=== PATIENT | male | born 1950 | race Caucasian/White ===

== ENCOUNTER 2017-08-02 06:06 | Outpatient (CLI) | payer OTHER ==
[~2017-08-02 06:06] MED LIST: CEPHALEXIN500 MG; ENALAPRIL MALEA20 MG PO; FOLIC ACID1 MG PO; LASIX40 MG; METHOTREXATE2.5 MG PO; NAPROXEN500 MG PO; NEURONTIN600 MG PO; OXYBUTYNIN CHLOR5 MG PO; PREDNISONE10 MG PO; TERAZOSIN HCL10 MG PO; VERAPAMIL HCL240 MG PO
== END 2017-08-02 06:18 | disposition home or self-care (01) ==
LOC: LAB 06:06
DX: E55.9 Vitamin D deficiency, unspecified (principal); M06.80 Other specified rheumatoid arthritis, unspecified site

== ENCOUNTER 2017-08-02 07:14 | Outpatient (CLI) | payer OTHER | END 2017-08-02 07:27 | disposition home or self-care (01) | LOC: RAD 07:14 | DX: J84.89 Other specified interstitial pulmonary diseases (principal) ==

== ENCOUNTER 2017-10-03 08:24 | Outpatient (CLI) | payer OTHER | END 2017-10-03 17:00 | disposition home or self-care (01) | LOC: TOM 08:24 | DX: M51.9 Unspecified thoracic, thoracolumbar and lumbosacral intervertebral disc disorder (principal) ==

== ENCOUNTER → 2017-11-28 06:21 | Outpatient (CLI) | payer OTHER | END | disposition home or self-care (01) | LOC: LAB 06:21 | DX: E78.89 Other lipoprotein metabolism disorders (principal); I10 Essential (primary) hypertension; M05.79 Rheumatoid arthritis with rheumatoid factor of multiple sites without organ or systems involvement; M06.89 Other specified rheumatoid arthritis, multiple sites; Z12.11 Encounter for screening for malignant neoplasm of colon ==

== ENCOUNTER 2017-12-20 06:05 | Outpatient (CLI) | payer OTHER | END 2017-12-20 06:15 | disposition home or self-care (01) | LOC: LAB 06:05 | DX: C61 Malignant neoplasm of prostate (principal) ==

== ENCOUNTER → 2018-01-30 06:21 | Outpatient (CLI) | payer OTHER | END | disposition home or self-care (01) | LOC: LAB 06:21 | DX: M05.70 Rheumatoid arthritis with rheumatoid factor of unspecified site without organ or systems involvement (principal); M05.00 Felty's syndrome, unspecified site ==

== ENCOUNTER 2018-03-26 16:45 | Emergency (ER) | payer OTHER ==
[~2018-03-26] VITALS: Ht 162.6 cm; Wt 88.0 kg
== END 2018-03-26 22:25 | disposition home or self-care (01) ==
LOC: ER 16:45
DX: K62.5 Hemorrhage of anus and rectum (principal)

== ENCOUNTER → 2018-06-07 06:15 | Outpatient (CLI) | payer OTHER | END | disposition home or self-care (01) | LOC: LAB 06:15 | DX: D64.89 Other specified anemias (principal); M06.80 Other specified rheumatoid arthritis, unspecified site ==

== ENCOUNTER 2018-06-20 06:15 | Outpatient (CLI) | payer OTHER | END 2018-06-20 07:10 | disposition home or self-care (01) | LOC: LAB 06:15 | DX: E29.1 Testicular hypofunction (principal); C61 Malignant neoplasm of prostate ==

== ENCOUNTER 2018-06-20 10:58 | Outpatient (CLI) | payer OTHER | END 2018-06-20 11:07 | disposition home or self-care (01) | LOC: SONOGRAMA 10:58 | DX: N63.10 Unspecified lump in the right breast, unspecified quadrant (principal); Z12.31 Encounter for screening mammogram for malignant neoplasm of breast ==

== ENCOUNTER 2018-07-03 06:15 | Outpatient (CLI) | payer OTHER | END 2018-07-03 06:35 | disposition home or self-care (01) | LOC: LAB 06:15 | DX: I10 Essential (primary) hypertension (principal); M05.79 Rheumatoid arthritis with rheumatoid factor of multiple sites without organ or systems involvement; M06.9 Rheumatoid arthritis, unspecified; N41.9 Inflammatory disease of prostate, unspecified; N40.3 Nodular prostate with lower urinary tract symptoms; C61 Malignant neoplasm of prostate; M54.5 Low back pain; F33.41 Major depressive disorder, recurrent, in partial remission; K62.5 Hemorrhage of anus and rectum; E29.1 Testicular hypofunction; D35.2 Benign neoplasm of pituitary gland ==

== ENCOUNTER 2018-07-20 07:09 | Outpatient (CLI) | payer OTHER | END 2018-07-20 07:12 | disposition home or self-care (01) | LOC: SONOGRAMA 07:09 | DX: N63.10 Unspecified lump in the right breast, unspecified quadrant (principal); N63.20 Unspecified lump in the left breast, unspecified quadrant; R92.0 Mammographic microcalcification found on diagnostic imaging of breast ==

== ENCOUNTER → 2018-11-07 06:13 | Outpatient (CLI) | payer OTHER | END | disposition home or self-care (01) | LOC: LAB 06:13 | DX: M05.9 Rheumatoid arthritis with rheumatoid factor, unspecified (principal); D64.89 Other specified anemias; E55.9 Vitamin D deficiency, unspecified ==

== ENCOUNTER → 2019-01-15 06:09 | Outpatient (CLI) | payer OTHER | END | disposition home or self-care (01) | LOC: LAB 06:09 | DX: C61 Malignant neoplasm of prostate (principal); R31.29 Other microscopic hematuria ==

== ENCOUNTER 2019-02-06 06:11 | Outpatient (CLI) | payer OTHER | END 2019-02-06 07:36 | disposition home or self-care (01) | LOC: LAB 06:11 | DX: N62 Hypertrophy of breast (principal); F32.89 Other specified depressive episodes; Z12.31 Encounter for screening mammogram for malignant neoplasm of breast; M05.79 Rheumatoid arthritis with rheumatoid factor of multiple sites without organ or systems involvement; M06.89 Other specified rheumatoid arthritis, multiple sites; C61 Malignant neoplasm of prostate; N40.3 Nodular prostate with lower urinary tract symptoms; N41.8 Other inflammatory diseases of prostate; E66.8 Other obesity; M54.5 Low back pain; I11.9 Hypertensive heart disease without heart failure; Z68.30 Body mass index [BMI] 30.0-30.9, adult; M15.8 Other polyosteoarthritis ==

== ENCOUNTER 2019-02-15 09:50 | Outpatient (CLI) | payer OTHER | END 2019-02-15 09:56 | disposition home or self-care (01) | LOC: LAB 09:50 | DX: F32.89 Other specified depressive episodes (principal) ==

== ENCOUNTER 2019-02-28 07:31 | Outpatient (CLI) | payer OTHER | END 2019-02-28 07:43 | disposition home or self-care (01) | LOC: MRI 07:31 | DX: F32.89 Other specified depressive episodes (principal); N63.10 Unspecified lump in the right breast, unspecified quadrant; Z12.31 Encounter for screening mammogram for malignant neoplasm of breast; M05.79 Rheumatoid arthritis with rheumatoid factor of multiple sites without organ or systems involvement; M06.89 Other specified rheumatoid arthritis, multiple sites; C61 Malignant neoplasm of prostate; N40.3 Nodular prostate with lower urinary tract symptoms; N41.8 Other inflammatory diseases of prostate; E66.8 Other obesity; M15.8 Other polyosteoarthritis; M54.5 Low back pain; I11.9 Hypertensive heart disease without heart failure | CPT/HCPCS: 70553; A9575 ==

== ENCOUNTER 2019-04-16 06:11 | Outpatient (CLI) | payer OTHER | END 2019-04-16 07:32 | disposition home or self-care (01) | LOC: LAB 06:11 | DX: F32.89 Other specified depressive episodes (principal); N63.10 Unspecified lump in the right breast, unspecified quadrant; Z12.31 Encounter for screening mammogram for malignant neoplasm of breast; M05.79 Rheumatoid arthritis with rheumatoid factor of multiple sites without organ or systems involvement; M06.89 Other specified rheumatoid arthritis, multiple sites; C61 Malignant neoplasm of prostate; N40.3 Nodular prostate with lower urinary tract symptoms; N41.8 Other inflammatory diseases of prostate; E66.8 Other obesity; M15.8 Other polyosteoarthritis; M54.5 Low back pain; E11.9 Type 2 diabetes mellitus without complications; Z68.30 Body mass index [BMI] 30.0-30.9, adult ==

== ENCOUNTER 2019-04-30 06:17 | Outpatient (CLI) | payer OTHER | END 2019-04-30 06:31 | disposition home or self-care (01) | LOC: LAB 06:17 | DX: M05.70 Rheumatoid arthritis with rheumatoid factor of unspecified site without organ or systems involvement (principal); M06.4 Inflammatory polyarthropathy ==

== ENCOUNTER 2019-08-03 06:18 | Outpatient (CLI) | payer OTHER | END 2019-08-03 07:10 | disposition home or self-care (01) | LOC: LAB 06:18 | DX: E66.8 Other obesity (principal) ==

== ENCOUNTER 2019-08-08 06:14 | Outpatient (CLI) | payer OTHER | END 2019-08-08 06:17 | disposition home or self-care (01) | LOC: LAB 06:14 | DX: F32.89 Other specified depressive episodes (principal); N63.10 Unspecified lump in the right breast, unspecified quadrant; M05.79 Rheumatoid arthritis with rheumatoid factor of multiple sites without organ or systems involvement; M06.89 Other specified rheumatoid arthritis, multiple sites ==

== ENCOUNTER → 2019-08-10 | Outpatient (CLI) | payer OTHER | END | disposition home or self-care (01) | LOC: MRI 08-07 07:15 | DX: F32.89 Other specified depressive episodes (principal); N63.10 Unspecified lump in the right breast, unspecified quadrant; M05.79 Rheumatoid arthritis with rheumatoid factor of multiple sites without organ or systems involvement; M06.9 Rheumatoid arthritis, unspecified; C61 Malignant neoplasm of prostate; N40.3 Nodular prostate with lower urinary tract symptoms; N41.8 Other inflammatory diseases of prostate; E66.8 Other obesity; M15.8 Other polyosteoarthritis; M54.5 Low back pain; I11.9 Hypertensive heart disease without heart failure; Z68.30 Body mass index [BMI] 30.0-30.9, adult | CPT/HCPCS: 70553; A9575; 70552 ==

== ENCOUNTER 2019-08-13 06:17 | Outpatient (CLI) | payer OTHER | END 2019-08-13 06:27 | disposition home or self-care (01) | LOC: LAB 06:17 | DX: C61 Malignant neoplasm of prostate (principal); N31.0 Uninhibited neuropathic bladder, not elsewhere classified ==

== ENCOUNTER 2019-10-24 09:34 | Outpatient (CLI) | payer OTHER | END 2019-10-24 09:41 | disposition home or self-care (01) | LOC: LAB 09:34 | DX: R31.1 Benign essential microscopic hematuria (principal); N30.00 Acute cystitis without hematuria ==

== ENCOUNTER 2019-10-29 08:49 | Outpatient (CLI) | payer OTHER | END 2019-10-29 09:00 | disposition home or self-care (01) | LOC: RAD 08:49 → TOM 08:49 → RAD 09:00 → TOM 09:00 | DX: N30.00 Acute cystitis without hematuria (principal); C61 Malignant neoplasm of prostate; R31.0 Gross hematuria | CPT/HCPCS: 74178; Q9965 ==

== ENCOUNTER 2019-11-26 06:18 | Outpatient (CLI) | payer OTHER | END 2019-11-26 07:23 | disposition home or self-care (01) | LOC: LAB 06:18 | DX: M05.70 Rheumatoid arthritis with rheumatoid factor of unspecified site without organ or systems involvement (principal) ==

== ENCOUNTER 2019-12-12 06:07 | Outpatient (CLI) | payer OTHER | END 2019-12-12 06:13 | disposition home or self-care (01) | LOC: LAB 06:07 | DX: F32.89 Other specified depressive episodes (principal); N63.10 Unspecified lump in the right breast, unspecified quadrant; M05.79 Rheumatoid arthritis with rheumatoid factor of multiple sites without organ or systems involvement; M06.9 Rheumatoid arthritis, unspecified; C61 Malignant neoplasm of prostate; N40.3 Nodular prostate with lower urinary tract symptoms; N41.8 Other inflammatory diseases of prostate; E66.8 Other obesity; M15.8 Other polyosteoarthritis; M54.5 Low back pain; I11.9 Hypertensive heart disease without heart failure; Z68.30 Body mass index [BMI] 30.0-30.9, adult; Z12.11 Encounter for screening for malignant neoplasm of colon ==

== ENCOUNTER → 2020-03-11 06:09 | Outpatient (CLI) | payer OTHER | END | disposition home or self-care (01) | LOC: LAB 06:09 | PROVIDERS: ATTEND Internal Medicine | DX: N40.3 Nodular prostate with lower urinary tract symptoms (principal); F32.89 Other specified depressive episodes; N63.10 Unspecified lump in the right breast, unspecified quadrant; M05.79 Rheumatoid arthritis with rheumatoid factor of multiple sites without organ or systems involvement; M06.89 Other specified rheumatoid arthritis, multiple sites; C61 Malignant neoplasm of prostate; N41.8 Other inflammatory diseases of prostate; E66.8 Other obesity; M15.8 Other polyosteoarthritis; I11.9 Hypertensive heart disease without heart failure; Z68.30 Body mass index [BMI] 30.0-30.9, adult; Z12.11 Encounter for screening for malignant neoplasm of colon; M54.5 Low back pain ==

== ENCOUNTER → 2020-05-26 06:14 | Outpatient (CLI) | payer OTHER | END | disposition home or self-care (01) | LOC: LAB 06:14 | PROVIDERS: ATTEND Internal Medicine Rheumatology | DX: M05.70 Rheumatoid arthritis with rheumatoid factor of unspecified site without organ or systems involvement (principal); E55.9 Vitamin D deficiency, unspecified; M81.0 Age-related osteoporosis without current pathological fracture ==

== ENCOUNTER 2020-07-07 06:24 | Outpatient (CLI) | payer OTHER | END 2020-07-07 06:29 | disposition home or self-care (01) | LOC: LAB 06:24 | PROVIDERS: ATTEND Internal Medicine | DX: C61 Malignant neoplasm of prostate (principal); F32.89 Other specified depressive episodes; N63.10 Unspecified lump in the right breast, unspecified quadrant; M05.79 Rheumatoid arthritis with rheumatoid factor of multiple sites without organ or systems involvement; M06.9 Rheumatoid arthritis, unspecified; N40.3 Nodular prostate with lower urinary tract symptoms; N41.9 Inflammatory disease of prostate, unspecified; E66.8 Other obesity; M15.9 Polyosteoarthritis, unspecified; M54.5 Low back pain; I11.9 Hypertensive heart disease without heart failure; Z68.30 Body mass index [BMI] 30.0-30.9, adult; Z12.11 Encounter for screening for malignant neoplasm of colon ==

== ENCOUNTER 2020-07-21 06:20 | Outpatient (CLI) | payer OTHER | END 2020-07-21 06:26 | disposition home or self-care (01) | LOC: LAB 06:20 | PROVIDERS: ATTEND Urology | DX: C61 Malignant neoplasm of prostate (principal); N30.00 Acute cystitis without hematuria ==

== ENCOUNTER 2020-08-11 06:08 | Outpatient (CLI) | payer OTHER | END 2020-08-11 06:15 | disposition home or self-care (01) | LOC: LAB 06:08 | PROVIDERS: ATTEND Urology | DX: C61 Malignant neoplasm of prostate (principal); R31.1 Benign essential microscopic hematuria ==

== ENCOUNTER 2020-10-06 06:12 | Outpatient (CLI) | payer OTHER | END 2020-10-06 06:17 | disposition home or self-care (01) | LOC: LAB 06:12 | PROVIDERS: ATTEND Internal Medicine | DX: N41.8 Other inflammatory diseases of prostate (principal); F32.89 Other specified depressive episodes; Z12.11 Encounter for screening for malignant neoplasm of colon; N63.10 Unspecified lump in the right breast, unspecified quadrant; M05.79 Rheumatoid arthritis with rheumatoid factor of multiple sites without organ or systems involvement; M06.8A Other specified rheumatoid arthritis, other specified site; C61 Malignant neoplasm of prostate; N40.3 Nodular prostate with lower urinary tract symptoms; E66.8 Other obesity; M15.8 Other polyosteoarthritis; M54.5 Low back pain; I11.9 Hypertensive heart disease without heart failure; Z20.828 Contact with and (suspected) exposure to other viral communicable diseases; Z03.818 Encounter for observation for suspected exposure to other biological agents ruled out; M06.4 Inflammatory polyarthropathy; Z68.30 Body mass index [BMI] 30.0-30.9, adult ==

== ENCOUNTER 2020-11-23 08:18 | Emergency (ER) | payer OTHER ==
[~2020-11-23] VITALS: Ht 162.6 cm; Wt 80.7 kg
== END 2020-11-23 10:09 | disposition home or self-care (01) ==
LOC: ER 08:18
DX: M62.830 Muscle spasm of back (principal); M54.6 Pain in thoracic spine

== ENCOUNTER → 2021-01-05 06:14 | Outpatient (CLI) | payer OTHER | END | disposition home or self-care (01) | LOC: LAB 06:14 | PROVIDERS: ATTEND Internal Medicine Rheumatology | DX: M05.70 Rheumatoid arthritis with rheumatoid factor of unspecified site without organ or systems involvement (principal); M19.90 Unspecified osteoarthritis, unspecified site; D64.9 Anemia, unspecified ==

== ENCOUNTER 2021-01-13 06:09 | Outpatient (CLI) | payer OTHER | END 2021-01-13 06:10 | disposition home or self-care (01) | LOC: LAB 06:09 | PROVIDERS: ATTEND Internal Medicine | DX: N63.10 Unspecified lump in the right breast, unspecified quadrant (principal); F32.9 Major depressive disorder, single episode, unspecified; M05.79 Rheumatoid arthritis with rheumatoid factor of multiple sites without organ or systems involvement; C61 Malignant neoplasm of prostate; N40.3 Nodular prostate with lower urinary tract symptoms; N41.9 Inflammatory disease of prostate, unspecified; E66.8 Other obesity; M15.9 Polyosteoarthritis, unspecified; M54.5 Low back pain; I11.9 Hypertensive heart disease without heart failure; Z20.828 Contact with and (suspected) exposure to other viral communicable diseases; Z03.818 Encounter for observation for suspected exposure to other biological agents ruled out; M06.4 Inflammatory polyarthropathy; Z68.30 Body mass index [BMI] 30.0-30.9, adult; Z12.11 Encounter for screening for malignant neoplasm of colon ==

== ENCOUNTER 2021-04-13 06:11 | Outpatient (CLI) | payer OTHER | END 2021-04-13 06:13 | disposition home or self-care (01) | LOC: LAB 06:11 | PROVIDERS: ATTEND Internal Medicine | DX: F32.89 Other specified depressive episodes (principal); N63.10 Unspecified lump in the right breast, unspecified quadrant; M05.79 Rheumatoid arthritis with rheumatoid factor of multiple sites without organ or systems involvement; M06.8A Other specified rheumatoid arthritis, other specified site; C61 Malignant neoplasm of prostate; N40.3 Nodular prostate with lower urinary tract symptoms; N41.8 Other inflammatory diseases of prostate; E66.8 Other obesity; M15.8 Other polyosteoarthritis; M54.5 Low back pain; M06.4 Inflammatory polyarthropathy; I10 Essential (primary) hypertension; Z68.30 Body mass index [BMI] 30.0-30.9, adult; Z12.11 Encounter for screening for malignant neoplasm of colon ==

== ENCOUNTER 2021-06-11 05:00 | Emergency (ER) | payer OTHER ==
[~2021-06-11] VITALS: Ht 162.6 cm; Wt 81.6 kg
[2021-06-11] MEDS ORDERED: NOXIFOL-D32500 UNIT PO (05:17)
[2021-06-11] MEDS ORDERED: BUSPIRONE HCL7.5 MG (05:18)
[2021-06-11] MEDS ORDERED: FOLIC ACID1 MG PO (05:18)
[2021-06-11] MEDS ORDERED: ZANAFLEX4 M1 PO (05:19)
[2021-06-11] MEDS ORDERED: METHOTREXATE2.5 MG PO (05:19)
== END 2021-06-11 09:59 | disposition home or self-care (01) ==
LOC: ER 05:00 → CPU-OBS 05:07 → ER 09:59
DX: R07.89 Other chest pain (principal)

== ENCOUNTER → 2021-07-06 06:14 | Outpatient (CLI) | payer OTHER ==
[~2021-07-06 06:14] MED LIST changes: +BUSPIRONE HCL7.5 MG; +NOXIFOL-D32500 UNIT PO; +ZANAFLEX4 M1 PO
== END | disposition home or self-care (01) ==
LOC: LAB 06:14
PROVIDERS: ATTEND Internal Medicine Rheumatology
DX: I10 Essential (primary) hypertension (principal); R05.8 Other specified cough; M81.0 Age-related osteoporosis without current pathological fracture; M05.70 Rheumatoid arthritis with rheumatoid factor of unspecified site without organ or systems involvement; E55.9 Vitamin D deficiency, unspecified

== ENCOUNTER 2021-07-14 06:31 | Outpatient (CLI) | payer OTHER | END 2021-07-14 06:33 | disposition home or self-care (01) | LOC: LAB 06:31 | PROVIDERS: ATTEND Internal Medicine | DX: F32.89 Other specified depressive episodes (principal); N63.10 Unspecified lump in the right breast, unspecified quadrant; M05.79 Rheumatoid arthritis with rheumatoid factor of multiple sites without organ or systems involvement; C61 Malignant neoplasm of prostate; N40.3 Nodular prostate with lower urinary tract symptoms; N41.8 Other inflammatory diseases of prostate; E66.8 Other obesity; M15.8 Other polyosteoarthritis; M54.59 Other low back pain; M06.4 Inflammatory polyarthropathy; I10 Essential (primary) hypertension; Z68.30 Body mass index [BMI] 30.0-30.9, adult; Z12.11 Encounter for screening for malignant neoplasm of colon ==

== ENCOUNTER 2021-08-04 07:11 | Outpatient (CLI) | payer OTHER | END 2021-08-04 07:16 | disposition home or self-care (01) | LOC: SONOGRAMA 07:11 | PROVIDERS: ATTEND Urology | DX: N30.00 Acute cystitis without hematuria (principal); C61 Malignant neoplasm of prostate ==

== ENCOUNTER → 2021-08-19 06:18 | Outpatient (CLI) | payer OTHER | END | disposition home or self-care (01) | LOC: LAB 06:18 | PROVIDERS: ATTEND Urology | DX: C61 Malignant neoplasm of prostate (principal); N30.00 Acute cystitis without hematuria ==

== ENCOUNTER 2021-10-19 06:10 | Outpatient (CLI) | payer OTHER | END 2021-10-19 06:11 | disposition home or self-care (01) | LOC: LAB 06:10 | PROVIDERS: ATTEND Internal Medicine | DX: F32.9 Major depressive disorder, single episode, unspecified (principal); N63.10 Unspecified lump in the right breast, unspecified quadrant; M05.79 Rheumatoid arthritis with rheumatoid factor of multiple sites without organ or systems involvement; M06.9 Rheumatoid arthritis, unspecified; C61 Malignant neoplasm of prostate; N40.3 Nodular prostate with lower urinary tract symptoms; N41.9 Inflammatory disease of prostate, unspecified; E66.8 Other obesity; M15.9 Polyosteoarthritis, unspecified; M54.50 Low back pain, unspecified; M06.4 Inflammatory polyarthropathy; I10 Essential (primary) hypertension; M62.838 Other muscle spasm; M62.830 Muscle spasm of back; G24.3 Spasmodic torticollis; Z68.30 Body mass index [BMI] 30.0-30.9, adult; Z12.11 Encounter for screening for malignant neoplasm of colon ==

== ENCOUNTER 2022-01-04 06:18 | Outpatient (CLI) | payer OTHER | END 2022-01-04 06:21 | disposition home or self-care (01) | LOC: LAB 06:18 | PROVIDERS: ATTEND Internal Medicine Rheumatology | DX: D64.9 Anemia, unspecified (principal); R10.9 Unspecified abdominal pain; M05.70 Rheumatoid arthritis with rheumatoid factor of unspecified site without organ or systems involvement; M06.4 Inflammatory polyarthropathy ==

== ENCOUNTER 2022-01-26 06:08 | Outpatient (CLI) | payer OTHER | END 2022-01-26 06:09 | disposition home or self-care (01) | LOC: LAB 06:08 | PROVIDERS: ATTEND Internal Medicine | DX: F32.9 Major depressive disorder, single episode, unspecified (principal); N63.10 Unspecified lump in the right breast, unspecified quadrant; M05.79 Rheumatoid arthritis with rheumatoid factor of multiple sites without organ or systems involvement; M06.9 Rheumatoid arthritis, unspecified; C61 Malignant neoplasm of prostate; N40.3 Nodular prostate with lower urinary tract symptoms; N41.9 Inflammatory disease of prostate, unspecified; E66.8 Other obesity; M15.9 Polyosteoarthritis, unspecified; M54.50 Low back pain, unspecified; M06.4 Inflammatory polyarthropathy; I10 Essential (primary) hypertension; M62.838 Other muscle spasm; M62.830 Muscle spasm of back; G24.3 Spasmodic torticollis; E78.9 Disorder of lipoprotein metabolism, unspecified; Z68.30 Body mass index [BMI] 30.0-30.9, adult; Z12.11 Encounter for screening for malignant neoplasm of colon; N41.0 Acute prostatitis ==

== ENCOUNTER 2022-05-04 06:23 | Outpatient (CLI) | payer OTHER | END 2022-05-04 06:24 | disposition home or self-care (01) | LOC: LAB 06:23 | PROVIDERS: ATTEND Internal Medicine | DX: F32.9 Major depressive disorder, single episode, unspecified (principal); N63.10 Unspecified lump in the right breast, unspecified quadrant; M05.79 Rheumatoid arthritis with rheumatoid factor of multiple sites without organ or systems involvement; C61 Malignant neoplasm of prostate; N40.3 Nodular prostate with lower urinary tract symptoms; N41.9 Inflammatory disease of prostate, unspecified; E66.8 Other obesity; M15.9 Polyosteoarthritis, unspecified; M54.50 Low back pain, unspecified; M06.4 Inflammatory polyarthropathy; I10 Essential (primary) hypertension; M62.838 Other muscle spasm; G24.3 Spasmodic torticollis; E78.9 Disorder of lipoprotein metabolism, unspecified; Z12.11 Encounter for screening for malignant neoplasm of colon ==

== ENCOUNTER 2022-06-28 06:09 | Outpatient (CLI) | payer OTHER | END 2022-06-28 06:10 | disposition home or self-care (01) | LOC: LAB 06:09 | PROVIDERS: ATTEND Internal Medicine Rheumatology | DX: M05.70 Rheumatoid arthritis with rheumatoid factor of unspecified site without organ or systems involvement (principal); E55.9 Vitamin D deficiency, unspecified; M81.0 Age-related osteoporosis without current pathological fracture ==

== ENCOUNTER 2022-08-04 06:13 | Outpatient (CLI) | payer OTHER | END 2022-08-04 06:14 | disposition home or self-care (01) | LOC: LAB 06:13 | PROVIDERS: ATTEND Internal Medicine | DX: F32.9 Major depressive disorder, single episode, unspecified (principal); N63.10 Unspecified lump in the right breast, unspecified quadrant; M05.79 Rheumatoid arthritis with rheumatoid factor of multiple sites without organ or systems involvement; M06.9 Rheumatoid arthritis, unspecified; C61 Malignant neoplasm of prostate; N40.3 Nodular prostate with lower urinary tract symptoms; N41.9 Inflammatory disease of prostate, unspecified; E66.8 Other obesity; M15.9 Polyosteoarthritis, unspecified; M54.50 Low back pain, unspecified; I10 Essential (primary) hypertension ==

== ENCOUNTER 2022-08-17 06:12 | Outpatient (CLI) | payer OTHER | END 2022-08-17 06:13 | disposition home or self-care (01) | LOC: LAB 06:12 | PROVIDERS: ATTEND Urology | DX: N30.00 Acute cystitis without hematuria (principal); C61 Malignant neoplasm of prostate; D35.2 Benign neoplasm of pituitary gland ==

== ENCOUNTER → 2022-11-15 06:23 | Outpatient (CLI) | payer OTHER | END | disposition home or self-care (01) | LOC: LAB 06:23 | PROVIDERS: ATTEND Internal Medicine | DX: M06.4 Inflammatory polyarthropathy (principal); I11.9 Hypertensive heart disease without heart failure; F33.41 Major depressive disorder, recurrent, in partial remission; M06.9 Rheumatoid arthritis, unspecified; M54.59 Other low back pain; F41.9 Anxiety disorder, unspecified; N41.0 Acute prostatitis; Z12.11 Encounter for screening for malignant neoplasm of colon ==

== ENCOUNTER 2022-11-20 15:29 | Emergency (ER) | payer OTHER ==
[~2022-11-20] VITALS: Ht 162.6 cm; Wt 85.3 kg
[2022-11-20] MEDS ORDERED: CRESTOR5 MG PO (16:26)
[2022-11-20] MEDS ORDERED: LASIX20 MG PO (16:26)
[2022-11-20] MEDS ORDERED: ARTHRITIS PAIN650 MG PO (16:26)
[2022-11-20] MEDS ORDERED: VITAMIN D3100 GM MC (16:26)
[2022-11-20] MEDS ORDERED: ZESTRIL40 M1 PO (16:26)
[2022-11-20] MEDS ORDERED: VERAPAMIL ER240 MG PO (16:27)
== END 2022-11-20 20:51 | disposition home or self-care (01) ==
LOC: ER 15:29
DX: N30.81 Other cystitis with hematuria (principal)

== ENCOUNTER 2023-01-15 03:14 | Emergency (ER) | payer OTHER ==
[~2023-01-15] VITALS: Ht 162.6 cm; Wt 83.5 kg
[~2023-01-15 03:14] MED LIST changes: +ARTHRITIS PAIN650 MG PO; +CRESTOR5 MG PO; +LASIX20 MG PO; +VERAPAMIL ER240 MG PO; +VITAMIN D3100 GM MC; +ZESTRIL40 M1 PO
[2023-01-15] MEDS ORDERED: VITAMIN B-1100 M1 (03:27)
== END 2023-01-15 06:14 | disposition home or self-care (01) ==
LOC: ER 03:14
DX: R30.0 Dysuria (principal)

== ENCOUNTER 2023-02-07 06:03 | Outpatient (CLI) | payer OTHER ==
[~2023-02-07 06:03] MED LIST changes: +VITAMIN B-1100 M1
== END 2023-02-07 06:04 | disposition home or self-care (01) ==
LOC: LAB 06:03
PROVIDERS: ATTEND Internal Medicine
DX: M06.4 Inflammatory polyarthropathy (principal); I11.9 Hypertensive heart disease without heart failure; F33.41 Major depressive disorder, recurrent, in partial remission; M06.9 Rheumatoid arthritis, unspecified; M54.59 Other low back pain; F41.9 Anxiety disorder, unspecified; Z12.11 Encounter for screening for malignant neoplasm of colon; N41.0 Acute prostatitis

== ENCOUNTER → 2023-04-05 06:07 | Outpatient (CLI) | payer OTHER | END | disposition home or self-care (01) | LOC: LAB 06:07 | PROVIDERS: ATTEND Internal Medicine Rheumatology | DX: M19.90 Unspecified osteoarthritis, unspecified site (principal); M05.70 Rheumatoid arthritis with rheumatoid factor of unspecified site without organ or systems involvement; M06.4 Inflammatory polyarthropathy ==

== ENCOUNTER → 2023-05-17 06:07 | Outpatient (CLI) | payer OTHER ==
[2023-05-17 07:27] LABS: HEMATOCRIT 45.1 % (39.0-48.0); HEMOGLOBIN 15.1 g/dL (13-16.00); MEAN CELL VOLUME 90.2 fL (80.0-100.00); MEAN CORPUSCULAR HEMOGLOBIN 30.2 pg (27.00-32.0); MEAN CORPUSCULAR HGB CONC 33.5 g/dl (32.0-36.0); PLATELET COUNT 145 K/uL (150-450); RED CELL DISTRIBUTION WIDTH 14.8 % (11.5-14.5)
[2023-05-17 07:37] LABS: PH,URINE 5.5 (5.0-8.0); URINE APPEARANCE Clear; URINE BILIRRUBIN Negative (NEGATIVE); URINE BLOOD Negative; URINE COLOR Dark Yellow; URINE GLUCOSE Negative (NEGATIVE); URINE LEUKOCYTE Negative; URINE NITRATE Negative; URINE PROTEIN 30 (NEGATIVE)
[2023-05-17 07:43] LABS: URINE BACTERIA 7.5 uL (0.0-1933); URINE EPITHELIAL CELLS 6.7 uL (0.0-38.8); URINE RBC 2.8 uL (0.0-20.8); URINE WBC 3.2 uL (0.0-23.2)
[2023-05-17 07:52] LABS: ALBUMIN 3.7 gm/dL (3.4-5.0); BILIRUBIN TOTAL 0.57 mg/dL (0.3-1.2); CALCIUM 9.4 mg/dL (8.5-10.1); CREATININE SERUM 1.13 mg/dL (0.70-1.30); GFR 63.61; GLOBULINA 3.9 G/DL (2.4-3.5); POTASSIUM 4.17 mEq/L (3.5-5.1); TOTAL PROTEIN 7.6 gm/dL (6.4-8.2)
== END | disposition home or self-care (01) ==
LOC: LAB 06:07
PROVIDERS: ATTEND Internal Medicine
DX: M06.4 Inflammatory polyarthropathy (principal); I11.9 Hypertensive heart disease without heart failure; F33.41 Major depressive disorder, recurrent, in partial remission; M06.9 Rheumatoid arthritis, unspecified; F41.9 Anxiety disorder, unspecified; Z12.11 Encounter for screening for malignant neoplasm of colon; N41.0 Acute prostatitis; M54.50 Low back pain, unspecified

== ENCOUNTER → 2023-05-23 06:07 | Outpatient (CLI) | payer OTHER ==
[2023-05-23 08:39] LABS: URINE PROT QUANT 24HR 6.1 MG/DL
[2023-05-23 08:40] LABS: URINE PROT QUANT 24 HR 103.7 MG/24HR (42-225)
== END | disposition home or self-care (01) ==
LOC: LAB 06:07
PROVIDERS: ATTEND Internal Medicine
DX: F33.41 Major depressive disorder, recurrent, in partial remission (principal); M06.9 Rheumatoid arthritis, unspecified; I10 Essential (primary) hypertension; F41.9 Anxiety disorder, unspecified; Z12.11 Encounter for screening for malignant neoplasm of colon; N41.0 Acute prostatitis; M54.50 Low back pain, unspecified; M06.4 Inflammatory polyarthropathy

== ENCOUNTER → 2023-08-16 06:09 | Outpatient (CLI) | payer OTHER ==
[2023-08-16 07:23] LABS: URINE APPEARANCE Clear; URINE BILIRRUBIN Moderate (NEGATIVE); URINE BLOOD Negative; URINE COLOR Dark Yellow; URINE GLUCOSE Negative (NEGATIVE); URINE LEUKOCYTE Negative; URINE NITRATE Negative
[2023-08-16 07:24] LABS: URINE BACTERIA 26.4 uL (0.0-1933); URINE EPITHELIAL CELLS 12.8 uL (0.0-38.8); URINE RBC 2.1 uL (0.0-20.8); URINE WBC 7.1 uL (0.0-23.2)
[2023-08-16 07:25] LABS: URINE PROTEIN 100 (NEGATIVE)
== END | disposition home or self-care (01) ==
LOC: LAB 06:09
PROVIDERS: ATTEND Urology
DX: R31.0 Gross hematuria (principal); E22.8 Other hyperfunction of pituitary gland

== ENCOUNTER 2023-08-17 07:00 | Outpatient (CLI) | payer OTHER | END 2023-08-17 07:06 | disposition home or self-care (01) | LOC: SONOGRAMA 07:00 | PROVIDERS: ATTEND Urology | DX: R31.0 Gross hematuria (principal); E22.8 Other hyperfunction of pituitary gland ==

== ENCOUNTER 2023-09-06 06:12 | Outpatient (CLI) | payer OTHER ==
[2023-09-06 07:17] LABS: HEMATOCRIT 45.1 % (39.0-48.0); HEMOGLOBIN 15.4 g/dL (13-16.00); MEAN CELL VOLUME 88.2 fL (80.0-100.00); MEAN CORPUSCULAR HEMOGLOBIN 30.2 pg (27.00-32.0); MEAN CORPUSCULAR HGB CONC 34.2 g/dl (32.0-36.0); PLATELET COUNT 152 K/uL (150-450); RED BLOOD COUNT 5.12 M/uL (4.00-6.00); RED CELL DISTRIBUTION WIDTH 13.7 % (11.5-14.5)
[2023-09-06 07:20] LABS: URINE APPEARANCE Clear; URINE BILIRRUBIN Negative (NEGATIVE); URINE BLOOD Negative; URINE COLOR Yellow; URINE GLUCOSE Negative (NEGATIVE); URINE LEUKOCYTE Negative; URINE NITRATE Negative; URINE PROTEIN 30 (NEGATIVE); URINE UROBILINOGEN 0.2 E.U./dl
[2023-09-06 07:21] LABS: URINE WBC 2.1 uL (0.0-23.2)
[2023-09-06 07:32] LABS: URINE EPITHELIAL CELLS 0.9 uL (0.0-38.8); URINE RBC 0.1 uL (0.0-20.8)
[2023-09-06 07:40] LABS: BILIRUBIN TOTAL 0.58 mg/dL (0.3-1.2); CALCIUM 9.8 mg/dL (8.5-10.1); CHOL HDL RATIO 2.1 (0-5.0); CREATININE SERUM 1.16 mg/dL (0.70-1.30); GFR 61.71; GLOBULINA 4.1 G/DL (2.4-3.5); POTASSIUM 4.72 mEq/L (3.5-5.1); TOTAL PROTEIN 8.1 gm/dL (6.4-8.2)
[2023-09-06 12:37] LABS: ob NEGATIVE (NEGATIVE)
== END 2023-09-06 06:13 | disposition home or self-care (01) ==
LOC: LAB 06:12
PROVIDERS: ATTEND Internal Medicine
DX: I11.9 Hypertensive heart disease without heart failure (principal); K62.5 Hemorrhage of anus and rectum; M15.9 Polyosteoarthritis, unspecified; M54.50 Low back pain, unspecified; I10 Essential (primary) hypertension

== ENCOUNTER 2024-03-26 06:02 | Outpatient (CLI) | payer OTHER ==
[2024-03-26 07:32] LABS: HEMATOCRIT 44.7 % (39.0-48.0); HEMOGLOBIN 15.2 g/dL (13-16.00); MEAN CELL VOLUME 87.5 fL (80.0-100.00); MEAN CORPUSCULAR HEMOGLOBIN 29.7 pg (27.00-32.0); MEAN CORPUSCULAR HGB CONC 33.9 g/dl (32.0-36.0); PLATELET COUNT 174 K/uL (150-450); RED BLOOD COUNT 5.11 M/uL (4.00-6.00)
[2024-03-26 07:53] LABS: URINE APPEARANCE Clear; URINE BILIRRUBIN Negative (NEGATIVE); URINE BLOOD Negative; URINE COLOR Dark Yellow; URINE GLUCOSE Negative (NEGATIVE); URINE KETONE 15 (NEGATIVE); URINE LEUKOCYTE Negative; URINE NITRATE Negative
[2024-03-26 07:57] LABS: URINE BACTERIA 15.1 uL (0.0-1933); URINE EPITHELIAL CELLS 7.4 uL (0.0-38.8); URINE WBC 3.5 uL (0.0-23.2)
[2024-03-26 08:04] LABS: URINE CAST 0.45 uL (0.0-1.40); URINE PROTEIN 100 (NEGATIVE); URINE RBC 0.9 uL (0.0-20.8)
[2024-03-26 08:18] LABS: ALBUMIN 3.9 gm/dL (3.4-5.0); BILIRUBIN TOTAL 0.59 mg/dL (0.3-1.2); CALCIUM 9.8 mg/dL (8.5-10.1); CHOL HDL RATIO 1.8 (0-5.0); CREATININE SERUM 0.98 mg/dL (0.70-1.30); GFR 74.97; GLOBULINA 4.1 G/DL (2.4-3.5); POTASSIUM 4.29 mEq/L (3.5-5.1)
== END 2024-03-26 06:03 | disposition home or self-care (01) ==
LOC: LAB 06:02
PROVIDERS: ATTEND Internal Medicine
DX: I11.9 Hypertensive heart disease without heart failure (principal); K62.5 Hemorrhage of anus and rectum; M15.9 Polyosteoarthritis, unspecified; I10 Essential (primary) hypertension

== ENCOUNTER 2024-04-16 06:07 | Outpatient (CLI) | payer OTHER ==
[2024-04-16 07:26] LABS: HEMATOCRIT 45.1 % (39.0-48.0); HEMOGLOBIN 15.1 g/dL (13-16.00); MEAN CELL VOLUME 88.8 fL (80.0-100.00); MEAN CORPUSCULAR HEMOGLOBIN 29.7 pg (27.00-32.0); MEAN CORPUSCULAR HGB CONC 33.5 g/dl (32.0-36.0); PLATELET COUNT 145 K/uL (150-450); RED BLOOD COUNT 5.08 M/uL (4.00-6.00); RED CELL DISTRIBUTION WIDTH 14.3 % (11.5-14.5)
[2024-04-16 07:34] LABS: ERYTHROCYTE SEDIMENTATION RATE 16 mm/hr
[2024-04-16 08:08] LABS: ALBUMIN 3.8 gm/dL (3.4-5.0); BILIRUBIN TOTAL 0.7 mg/dL (0.3-1.2); CALCIUM 9.5 mg/dL (8.5-10.1); CREATININE SERUM 1.05 mg/dL (0.70-1.30); GFR 69.23; POTASSIUM 4.72 mEq/L (3.5-5.1); TOTAL PROTEIN 7.8 gm/dL (6.4-8.2)
[2024-04-16 08:10] LABS: C-REACTIVE PROTEIN 0.35 MG/DL (0.00-0.29)
== END 2024-04-16 06:08 | disposition home or self-care (01) ==
LOC: LAB 06:07
PROVIDERS: ATTEND Internal Medicine Rheumatology
DX: M19.90 Unspecified osteoarthritis, unspecified site (principal); M06.4 Inflammatory polyarthropathy

== ENCOUNTER → 2024-07-09 06:05 | Outpatient (CLI) | payer OTHER ==
[2024-07-09 07:24] LABS: URINE APPEARANCE Cloudy; URINE BILIRRUBIN Moderate (NEGATIVE); URINE BLOOD Negative; URINE COLOR Dark Yellow; URINE GLUCOSE Negative (NEGATIVE); URINE KETONE Trace (NEGATIVE); URINE LEUKOCYTE Trace; URINE NITRATE Negative; URINE PROTEIN 30 (NEGATIVE)
[2024-07-09 07:26] LABS: URINE BACTERIA 96.6 uL (0.0-1933); URINE CAST 21.35 uL (0.0-1.40); URINE EPITHELIAL CELLS 65.3 uL (0.0-38.8); URINE RBC 2.6 uL (0.0-20.8); URINE WBC 4.7 uL (0.0-23.2)
[2024-07-09 07:30] LABS: HEMATOCRIT 43.8 % (39.0-48.0); MEAN CELL VOLUME 89.4 fL (80.0-100.00); MEAN CORPUSCULAR HEMOGLOBIN 30.7 pg (27.00-32.0); MEAN CORPUSCULAR HGB CONC 34.3 g/dl (32.0-36.0); PLATELET COUNT 160 K/uL (150-450); RED CELL DISTRIBUTION WIDTH 14.7 % (11.5-14.5)
[2024-07-09 07:48] LABS: URINE MUCUS HEAVY
[2024-07-09 08:32] LABS: ALBUMIN 4.1 gm/dL (3.4-5.0); BILIRUBIN TOTAL 0.69 mg/dL (0.3-1.2); CALCIUM 9.9 mg/dL (8.5-10.1); CREATININE SERUM 1.2 mg/dL (0.70-1.30); GFR 59.18; GLOBULINA 4.1 G/DL (2.4-3.5); POTASSIUM 4.91 mEq/L (3.5-5.1); TOTAL PROTEIN 8.2 gm/dL (6.4-8.2)
== END | disposition home or self-care (01) ==
LOC: LAB 06:05
PROVIDERS: ATTEND Internal Medicine
DX: I11.9 Hypertensive heart disease without heart failure (principal); K62.5 Hemorrhage of anus and rectum; M15.9 Polyosteoarthritis, unspecified; I10 Essential (primary) hypertension

== ENCOUNTER → 2024-08-13 06:11 | Outpatient (CLI) | payer OTHER ==
[2024-08-13 07:21] LABS: URINE BACTERIA 89.3 uL (0.0-1933); URINE EPITHELIAL CELLS 50.8 uL (0.0-38.8); URINE RBC 3.3 uL (0.0-20.8); URINE WBC 6.3 uL (0.0-23.2)
[2024-08-13 08:12] LABS: PH,URINE 5.5; URINE BLOOD NEGATIVE; URINE GLUCOSE NEGATIVE (NEGATIVE); URINE KETONE TRACE (NEGATIVE); URINE LEUKOCYTE NEGATIVE; URINE NITRATE NEGATIVE; URINE PROTEIN 30 (NEGATIVE); URINE UROBILINOGEN 0.2 E.U./dl
[2024-08-13 08:14] LABS: URINE APPEARANCE CLEAR; URINE BILIRRUBIN MODERATE (NEGATIVE); URINE COLOR YELLOW
[2024-08-13 08:15] LABS: URINE CAST > 21.83 uL (0.0-1.40)
[2024-08-13 08:18] LABS: URINE CRYSTALS FEW /HPF
== END | disposition home or self-care (01) ==
LOC: LAB 06:11
PROVIDERS: ATTEND Urology
DX: R31.1 Benign essential microscopic hematuria (principal); C61 Malignant neoplasm of prostate

== ENCOUNTER 2024-08-13 07:13 | Outpatient (CLI) | payer OTHER | END 2024-08-13 07:18 | disposition home or self-care (01) | LOC: SONOGRAMA 07:13 | PROVIDERS: ATTEND Urology | DX: R31.1 Benign essential microscopic hematuria (principal); N20.0 Calculus of kidney ==

== ENCOUNTER 2024-10-01 06:09 | Outpatient (CLI) | payer OTHER ==
[2024-10-01 07:24] LABS: HEMATOCRIT 45.6 % (39.0-48.0); HEMOGLOBIN 15.6 g/dL (13-16.00); MEAN CELL VOLUME 89.5 fL (80.0-100.00); MEAN CORPUSCULAR HEMOGLOBIN 30.7 pg (27.00-32.0); MEAN CORPUSCULAR HGB CONC 34.3 g/dl (32.0-36.0); PLATELET COUNT 206 K/uL (150-450); RED BLOOD COUNT 5.09 M/uL (4.00-6.00); RED CELL DISTRIBUTION WIDTH 14.3 % (11.5-14.5)
[2024-10-01 07:31] LABS: URINE APPEARANCE Clear; URINE BILIRRUBIN Small (NEGATIVE); URINE BLOOD Negative; URINE COLOR Dark Yellow; URINE GLUCOSE Negative (NEGATIVE); URINE KETONE Trace (NEGATIVE); URINE LEUKOCYTE Trace; URINE NITRATE Negative
[2024-10-01 07:34] LABS: URINE BACTERIA 37.9 uL (0.0-1933); URINE CAST 5.15 uL (0.0-1.40); URINE PROTEIN 100 (NEGATIVE); URINE RBC 2.3 uL (0.0-20.8); URINE WBC 4.7 uL (0.0-23.2)
[2024-10-01 07:43] LABS: ERYTHROCYTE SEDIMENTATION RATE 31 mm/hr
[2024-10-01 08:01] LABS: ALBUMIN 3.9 gm/dL (3.4-5.0); ALKALINE PHOSPHATASE 84 U/L (50-136); ALT/SGPT 41 U/L (12-78); ANION GAP 7 (10.0-20.0); AST/SGOT 46 U/L (15-37); BILIRUBIN TOTAL 0.87 mg/dL (0.3-1.2); BLOOD UREA NITROGEN 18 mg/dL (7-18); BUN CREA RATIO 15 (7.0-25.0); CALCIUM 9.6 mg/dL (8.5-10.1); CARBON DIOXIDE 30 mEq/L (21-32); CHLORIDE 105 mmol/L (98-107); CREATININE SERUM 1.19 mg/dL (0.70-1.30); GFR 59.76; GLOBULINA 4.4 G/DL (2.4-3.5); GLUCOSE FASTING 97 mg/dL (65-100); OSMOLALITY SERUM 276 MOSM/KG (275-295); POTASSIUM 4.52 mEq/L (3.5-5.1); SODIUM 137 mmol/L (136-145); TOTAL PROTEIN 8.3 gm/dL (6.4-8.2)
[2024-10-01 08:02] LABS: C-REACTIVE PROTEIN < 0.29 MG/DL (0.00-0.29)
== END 2024-10-01 06:20 | disposition home or self-care (01) ==
LOC: LAB 06:09
DX: M19.90 Unspecified osteoarthritis, unspecified site (principal); M05.70 Rheumatoid arthritis with rheumatoid factor of unspecified site without organ or systems involvement; M06.4 Inflammatory polyarthropathy

== ENCOUNTER 2024-10-14 06:52 | Emergency (ER) | payer OTHER ==
[~2024-10-14] VITALS: Ht 162.6 cm; Wt 82.1 kg
[2024-10-14] MEDS ORDERED: FUROSEMIDE20 MG PO (07:23)
[2024-10-14 09:25] LABS: HEMATOCRIT 45.3 % (39.0-48.0); HEMOGLOBIN 15.5 g/dL (13-16.00); MEAN CELL VOLUME 89.1 fL (80.0-100.00); MEAN CORPUSCULAR HEMOGLOBIN 30.5 pg (27.00-32.0); MEAN CORPUSCULAR HGB CONC 34.3 g/dl (32.0-36.0); PLATELET COUNT 146 K/uL (150-450); RED BLOOD COUNT 5.09 M/uL (4.00-6.00); RED CELL DISTRIBUTION WIDTH 13.7 % (11.5-14.5)
[2024-10-14 09:46] LABS: URINE APPEARANCE Cloudy; URINE BILIRRUBIN Negative (NEGATIVE); URINE BLOOD Large; URINE COLOR Yellow; URINE GLUCOSE Negative (NEGATIVE); URINE KETONE Negative (NEGATIVE); URINE LEUKOCYTE Moderate; URINE NITRATE Negative; URINE UROBILINOGEN 0.2 E.U./dl
[2024-10-14 09:46] LABS: CALCIUM 10.3 mg/dL (8.5-10.1); CREATININE SERUM 1.17 mg/dL (0.70-1.30); GFR 60.94; POTASSIUM 4.42 mEq/L (3.5-5.1)
[2024-10-14 09:54] LABS: URINE BACTERIA 1331.6 uL (0.0-1933); URINE EPITHELIAL CELLS 2.6 uL (0.0-38.8); URINE RBC 656.6 uL (0.0-20.8); URINE WBC 1646.1 uL (0.0-23.2)
[2024-10-14 09:58] LABS: URINE PROTEIN 100 (NEGATIVE)
== END 2024-10-14 12:50 | disposition home or self-care (01) ==
LOC: ER 06:55
DX: N39.0 Urinary tract infection, site not specified (principal); Z85.46 Personal history of malignant neoplasm of prostate; I10 Essential (primary) hypertension; B96.29 Other Escherichia coli [E. coli] as the cause of diseases classified elsewhere; Z16.11 Resistance to penicillins; Z16.19 Resistance to other specified beta lactam antibiotics

== ENCOUNTER 2024-10-16 06:05 | Outpatient (CLI) | payer OTHER ==
[~2024-10-16 06:05] MED LIST changes: +FUROSEMIDE20 MG PO
[2024-10-16 07:03] LABS: HEMATOCRIT 45.3 % (39.0-48.0); MEAN CELL VOLUME 90.5 fL (80.0-100.00); MEAN CORPUSCULAR HGB CONC 33.2 g/dl (32.0-36.0); PLATELET COUNT 182 K/uL (150-450); RED BLOOD COUNT 5.01 M/uL (4.00-6.00); RED CELL DISTRIBUTION WIDTH 13.9 % (11.5-14.5)
[2024-10-16 07:12] LABS: URINE APPEARANCE Clear; URINE BILIRRUBIN Negative (NEGATIVE); URINE COLOR Yellow; URINE GLUCOSE Negative (NEGATIVE); URINE KETONE Trace (NEGATIVE); URINE LEUKOCYTE Small; URINE NITRATE Negative
[2024-10-16 07:15] LABS: URINE BACTERIA 20.8 uL (0.0-1933); URINE EPITHELIAL CELLS 10.7 uL (0.0-38.8); URINE RBC 64.3 uL (0.0-20.8); URINE WBC 138.7 uL (0.0-23.2)
[2024-10-16 07:16] LABS: URINE BLOOD TRACE; URINE CAST 0.29 uL (0.0-1.40); URINE PROTEIN 100 (NEGATIVE)
[2024-10-16 07:48] LABS: ALBUMIN 3.7 gm/dL (3.4-5.0); BILIRUBIN TOTAL 0.58 mg/dL (0.3-1.2); CALCIUM 9.7 mg/dL (8.5-10.1); CREATININE SERUM 1.15 mg/dL (0.70-1.30); GFR 62.16; GLOBULINA 4.2 G/DL (2.4-3.5); POTASSIUM 3.89 mEq/L (3.5-5.1); TOTAL PROTEIN 7.9 gm/dL (6.4-8.2)
== END 2024-10-16 06:10 | disposition home or self-care (01) ==
LOC: LAB 06:05
PROVIDERS: ATTEND Internal Medicine
DX: I11.9 Hypertensive heart disease without heart failure (principal); K62.5 Hemorrhage of anus and rectum; M15.9 Polyosteoarthritis, unspecified; I10 Essential (primary) hypertension; Z12.11 Encounter for screening for malignant neoplasm of colon

== ENCOUNTER 2024-10-23 06:27 | Outpatient (CLI) | payer OTHER ==
[2024-10-23 07:36] LABS: ob NEGATIVE (NEGATIVE)
== END 2024-10-23 06:31 | disposition home or self-care (01) ==
LOC: LAB 06:27
PROVIDERS: ATTEND Internal Medicine
DX: I11.9 Hypertensive heart disease without heart failure (principal); K62.5 Hemorrhage of anus and rectum; M15.9 Polyosteoarthritis, unspecified; I10 Essential (primary) hypertension; E55.9 Vitamin D deficiency, unspecified; Z12.11 Encounter for screening for malignant neoplasm of colon

== ENCOUNTER 2024-10-31 06:00 | Emergency (ER) | payer OTHER ==
[~2024-10-31] VITALS: Ht 162.6 cm; Wt 86.2 kg
[2024-10-31] MEDS ORDERED: CEFTRIAXONE SODIUM 1,000 MG VIAL IV STA (07:16)
[2024-10-31] MEDS ORDERED: CEFTRIAXONE SODIUM 1,000 MG VIAL ONE (07:58)
[2024-10-31 08:30] LABS: HEMATOCRIT 46.6 % (39.0-48.0); HEMOGLOBIN 16.1 g/dL (13-16.00); MEAN CELL VOLUME 87.5 fL (80.0-100.00); MEAN CORPUSCULAR HEMOGLOBIN 30.3 pg (27.00-32.0); MEAN CORPUSCULAR HGB CONC 34.6 g/dl (32.0-36.0); PLATELET COUNT 164 K/uL (150-450); RED BLOOD COUNT 5.33 M/uL (4.00-6.00)
[2024-10-31 08:40] LABS: PH,URINE 6.5 (5.0-8.0); URINE APPEARANCE Clear; URINE BILIRRUBIN Negative (NEGATIVE); URINE BLOOD Large; URINE COLOR Yellow; URINE GLUCOSE Negative (NEGATIVE); URINE KETONE Negative (NEGATIVE); URINE LEUKOCYTE Negative; URINE NITRATE Negative; URINE PROTEIN Trace (NEGATIVE)
[2024-10-31 08:44] LABS: URINE BACTERIA 7.3 uL (0.0-1933); URINE RBC 235.3 uL (0.0-20.8); URINE WBC 2.5 uL (0.0-23.2)
[2024-10-31 08:45] LABS: URINE EPITHELIAL CELLS 0.4 uL (0.0-38.8)
[2024-10-31 09:23] LABS: INR 1.03; PARTIAL THROMBOPLASTIN TIME 26.9 SECONDS (22.0-34.0); PROTHROMBIN TIME 11.2 SECONDS (9.0-11.5)
[2024-10-31 10:00] LABS: ALBUMIN 3.7 gm/dL (3.4-5.0); BILIRUBIN TOTAL 0.39 mg/dL (0.3-1.2); CALCIUM 9.9 mg/dL (8.5-10.1); CREATININE SERUM 1.08 mg/dL (0.70-1.30); GFR 66.84; GLOBULINA 4.2 G/DL (2.4-3.5); POTASSIUM 4.31 mEq/L (3.5-5.1); TOTAL PROTEIN 7.9 gm/dL (6.4-8.2)
[2024-10-31] MEDS ORDERED: LEVOFLOXACIN750 MG PO (11:47)
== END 2024-10-31 11:57 | disposition home or self-care (01) ==
LOC: ER 06:01
PROVIDERS: General Practice
DX: N39.0 Urinary tract infection, site not specified (principal); R31.9 Hematuria, unspecified; I10 Essential (primary) hypertension
CPT/HCPCS: 36415; 74176; 96365; 99284; J0696

== ENCOUNTER 2025-01-01 06:22 | Outpatient (CLI) | payer OTHER ==
[~2025-01-01 06:22] MED LIST changes: +LEVOFLOXACIN750 MG PO
[2025-01-01 07:30] LABS: URINE APPEARANCE Clear; URINE BILIRRUBIN Negative (NEGATIVE); URINE BLOOD Negative; URINE COLOR Dark Yellow; URINE GLUCOSE Negative (NEGATIVE); URINE KETONE Trace (NEGATIVE); URINE LEUKOCYTE Negative; URINE NITRATE Negative; URINE PROTEIN 30 (NEGATIVE)
[2025-01-01 07:34] LABS: URINE BACTERIA 17.1 uL (0.0-1933); URINE CAST 2.35 uL (0.0-1.40); URINE EPITHELIAL CELLS 7.1 uL (0.0-38.8); URINE WBC 2.6 uL (0.0-23.2)
[2025-01-01 08:16] LABS: URINE RBC 1.6 uL (0.0-20.8)
== END 2025-01-01 06:23 | disposition home or self-care (01) ==
LOC: LAB 06:22
PROVIDERS: ATTEND Urology
DX: N30.00 Acute cystitis without hematuria (principal)

== ENCOUNTER 2025-01-15 06:15 | Outpatient (CLI) | payer OTHER ==
[2025-01-15 07:12] LABS: BASO % 0.3 % (0.1-1.2); EOS # 0.05 (0.04-0.54); EOS % 0.5 % (0.7-7.0); HEMATOCRIT 44.5 % (40.1-51.0); LYMPH # 0.86 (1.18-3.74); LYMPH % 9.2 % (19.3-53.1); MEAN CORPUSCULAR HEMOGLOBIN 29.1 pg (25.6-32.2); MONO # 0.51 (0.24-0.82); MONO % 5.4 % (4.7-12.5); NEUT # 7.89 (1.56-6.13); NEUT % 84.1 % (34.0-71.1); PLATELET COUNT 153 K/uL (163-369); RED BLOOD COUNT 5.16 M/uL (4.63-6.08); RED CELL DISTRIBUTION WIDTH 14.6 % (11.6-14.4)
[2025-01-15 07:17] LABS: PH,URINE 5.5 (5.0-8.0); URINE APPEARANCE Clear; URINE BILIRRUBIN Negative (NEGATIVE); URINE BLOOD Negative; URINE COLOR Yellow; URINE GLUCOSE Negative (NEGATIVE); URINE KETONE Trace (NEGATIVE); URINE LEUKOCYTE Negative; URINE NITRATE Negative; URINE UROBILINOGEN 0.2 E.U./dl
[2025-01-15 07:21] LABS: URINE BACTERIA 15.9 uL (0.0-1933); URINE EPITHELIAL CELLS 2.9 uL (0.0-38.8)
[2025-01-15 07:25] LABS: URINE CAST 0.29 uL (0.0-1.40); URINE PROTEIN 100 (NEGATIVE); URINE WBC 1.5 uL (0.0-23.2)
[2025-01-15 07:49] LABS: ALBUMIN 4.1 gm/dL (3.4-5.0); BILIRUBIN TOTAL 0.64 mg/dL (0.3-1.2); CALCIUM 9.9 mg/dL (8.5-10.1); CHOL HDL RATIO 1.8 (0-5.0); CREATININE SERUM 1.13 mg/dL (0.70-1.30); GFR 63.43; POTASSIUM 4.54 mEq/L (3.5-5.1); TOTAL PROTEIN 8.1 gm/dL (6.4-8.2)
== END 2025-01-15 06:19 | disposition home or self-care (01) ==
LOC: LAB 06:15
PROVIDERS: ATTEND Emergency Medicine Pediatric Emergency Medicine
DX: I11.9 Hypertensive heart disease without heart failure (principal); K62.5 Hemorrhage of anus and rectum; M15.9 Polyosteoarthritis, unspecified; I10 Essential (primary) hypertension; E55.9 Vitamin D deficiency, unspecified; Z12.11 Encounter for screening for malignant neoplasm of colon

== ENCOUNTER 2025-02-13 11:01 | Inpatient (IN) | payer OTHER ==
[~2025-02-13] VITALS: Ht 152.4 cm; Wt 80.7 kg
[2025-02-13] MEDS ORDERED: MILLIPRED5 MG (11:29)
[2025-02-13] MEDS ORDERED: CRESTOR40 MG PO (11:29)
[2025-02-13] MEDS ORDERED: MEDROL4 MG PO (11:30)
[2025-02-13] MEDS ORDERED: PHENAZOPYRIDINE HCL 100 MG TABLET PO ONE (12:15)
[2025-02-13] MEDS ORDERED: TAMSULOSIN HCL 0.4 MG CAP PO ONE (12:15)
[2025-02-13] MEDS ORDERED: CEFTRIAXONE SODIUM 1,000 MG VIAL IM ONE (12:15)
[2025-02-13 13:05] LABS: BASO % 0.2 % (0.1-1.2); EOS # 0.01 (0.04-0.54); EOS % 0.0 % (0.7-7.0); LYMPH # 0.61 (1.18-3.74); LYMPH % 1.9 % (19.3-53.1); MEAN PLATELET VOLUME 11.30 fl (9.4-12.4); MONO # 2.07 (0.24-0.82); MONO % 6.6 % (4.7-12.5); NEUT # 27.91 (1.56-6.13); NEUT % 88.5 % (34.0-71.1); RED CELL DISTRIBUTION WIDTH 15.1 % (11.6-14.4)
[2025-02-13 13:27] LABS: ALT/SGPT 30.0 U/L (12-78); AST/SGOT 15.0 U/L (15-37); BILIRUBIN TOTAL 0.83 mg/dL (0.3-1.2); BUN CREA RATIO 16.0 (7.0-25.0); CREATININE SERUM 2.2 mg/dL (0.70-1.30); GFR 29.41; GLOBULINA 4.1 G/DL (2.4-3.5); GLUCOSE FASTING 144.0 mg/dL (65-100); OSMOLALITY SERUM 294.0 MOSM/KG (275-295)
[2025-02-13] MEDS ORDERED: 0.9 % SODIUM CHLORIDE 1,000 ML IV ONE ×2 (14:15→15:15)
[2025-02-13 16:27] LABS: URINE APPEARANCE Clear; URINE BILIRRUBIN Small (NEGATIVE); URINE BLOOD Large; URINE COLOR Orange; URINE GLUCOSE Negative (NEGATIVE); URINE KETONE Negative (NEGATIVE); URINE LEUKOCYTE Small; URINE NITRATE Positive; URINE PROTEIN Trace (NEGATIVE); URINE UROBILINOGEN 1.0 E.U./dl
[2025-02-13 16:31] LABS: URINE BACTERIA 74.3 uL (0.0-1933); URINE CAST 2.05 uL (0.0-1.40); URINE EPITHELIAL CELLS 49.9 uL (0.0-38.8); URINE RBC 24.9 uL (0.0-20.8); URINE WBC 24.2 uL (0.0-23.2)
[2025-02-13 16:58] LABS: URINE CRYSTALS FEW /HPF
[2025-02-13 16:59] LABS: TYPE CELLS SQUAMOUS; URINE MUCUS SCANT
[2025-02-13] MEDS ORDERED: 0.9 % SODIUM CHLORIDE 1,000 ML IV SCH (20:15)
[2025-02-13] MEDS ORDERED: MEROPENEM 500 MG/VIAL VIAL IV SCH (20:16)
[2025-02-13] MEDS ORDERED: FAMOTIDINE/PF 20 MG in 0.9 % SODIUM CHLORIDE 8 ML IV PUSH SCH (20:17)
[2025-02-13] MEDS ORDERED: ONDANSETRON HCL 4 MG in 0.9 % SODIUM CHLORIDE 50 ML IV PRN (20:30)
[2025-02-13] MEDS ORDERED: ACETAMINOPHEN 500 MG GEL..CAP PO PRN (20:30)
[2025-02-13 22:26] LABS: INR 1.02
[2025-02-13 22:35] LABS: COVID-19 AG NEGATIVE (NEGATIVE)
[2025-02-14 07:57] LABS: BASO % 0.2 % (0.1-1.2); EOS # 0.07 (0.04-0.54); EOS % 0.5 % (0.7-7.0); LYMPH # 0.51 (1.18-3.74); LYMPH % 3.9 % (19.3-53.1); MEAN PLATELET VOLUME 10.70 fl (9.4-12.4); MONO # 0.94 (0.24-0.82); MONO % 7.3 % (4.7-12.5); NEUT # 11.24 (1.56-6.13); NEUT % 87.0 % (34.0-71.1); RED CELL DISTRIBUTION WIDTH 15.1 % (11.6-14.4)
[2025-02-14] MEDS ORDERED: ROSUVASTATIN CALCIUM 20 MG TABLET PO SCH (09:00)
[2025-02-14] MEDS ORDERED: VERAPAMIL HCL 240 MG TABLET.SA PO SCH (09:00)
[2025-02-14] MEDS ORDERED: LOSARTAN POTASSIUM 25 MG TABLET PO SCH (09:00)
[2025-02-14 16:06] VITALS: BP 170/80; O2SAT 100
[2025-02-14 16:17] VITALS: BP 134/78; O2SAT 96
[2025-02-14 19:23] LABS: ALT/SGPT 24.0 U/L (12-78); AST/SGOT 30.0 U/L (15-37); BILIRUBIN TOTAL 0.71 mg/dL (0.3-1.2); BUN CREA RATIO 20.0 (7.0-25.0); CREATININE SERUM 1.39 mg/dL (0.70-1.30); GFR 49.95; GLOBULINA 3.8 G/DL (2.4-3.5); GLUCOSE FASTING 149.0 mg/dL (65-100); OSMOLALITY SERUM 284.0 MOSM/KG (275-295)
[2025-02-15 01:51] VITALS: BP 138/78; O2SAT 98
[2025-02-15 07:14] LABS: ALT/SGPT 27.0 U/L (12-78); AST/SGOT 20.0 U/L (15-37); BILIRUBIN TOTAL 0.74 mg/dL (0.3-1.2); BUN CREA RATIO 21.0 (7.0-25.0); CREATININE SERUM 1.18 mg/dL (0.70-1.30); GFR 60.34; GLOBULINA 3.6 G/DL (2.4-3.5); GLUCOSE FASTING 116.0 mg/dL (65-100); OSMOLALITY SERUM 283.0 MOSM/KG (275-295)
[2025-02-15 09:29] VITALS: BP 148/80
[2025-02-15 16:00] VITALS: BP 132/69; BP 142/77
[2025-02-16 00:58] VITALS: BP 136/71; O2SAT 99
[2025-02-16 07:59] LABS: BASO % 0.3 % (0.1-1.2); EOS # 0.20 (0.04-0.54); EOS % 2.1 % (0.7-7.0); LYMPH # 0.94 (1.18-3.74); LYMPH % 9.7 % (19.3-53.1); MEAN PLATELET VOLUME 12.10 fl (9.4-12.4); MONO # 1.13 (0.24-0.82); MONO % 11.7 % (4.7-12.5); NEUT # 7.26 (1.56-6.13); NEUT % 75.3 % (34.0-71.1); RED CELL DISTRIBUTION WIDTH 14.8 % (11.6-14.4)
[2025-02-16 10:03] VITALS: BP 145/82; O2SAT 97
[2025-02-16] MEDS ORDERED: DEXAMETHASONE 4 MG TABLET PO SCH (17:00)
[2025-02-16 18:11] VITALS: BP 137/76; O2SAT 98
[2025-02-17 01:37] VITALS: BP 157/87; O2SAT 97
[2025-02-17 08:03] LABS: BASO % 0.2 % (0.1-1.2); EOS # 0.00 (0.04-0.54); EOS % 0.0 % (0.7-7.0); LYMPH # 0.59 (1.18-3.74); LYMPH % 7.0 % (19.3-53.1); MEAN PLATELET VOLUME 12.10 fl (9.4-12.4); MONO # 0.26 (0.24-0.82); MONO % 3.1 % (4.7-12.5); NEUT # 7.45 (1.56-6.13); NEUT % 87.9 % (34.0-71.1); RED CELL DISTRIBUTION WIDTH 14.6 % (11.6-14.4)
[2025-02-17 10:17] VITALS: BP 172/90; O2SAT 98
[2025-02-17] MEDS ORDERED: MEROPENEM 500 MG/VIAL VIAL IV SCH (12:00)
[2025-02-17] MEDS ORDERED: LACTOBACILLUS ACIDOPHILUS 1 CAP CAP PO SCH (17:00)
[2025-02-17 17:46] VITALS: BP 150/78; O2SAT 100
[2025-02-18 01:11] VITALS: BP 140/80; O2SAT 98
[2025-02-18 10:16] VITALS: BP 143/77; O2SAT 96
[2025-02-18 18:27] VITALS: BP 124/60
[2025-02-19 03:17] VITALS: BP 162/78; O2SAT 96
[2025-02-19 06:36] VITALS: BP 160/76
[2025-02-19 09:00] VITALS: BP 147/76; O2SAT 98
[2025-02-19 17:20] VITALS: BP 158/81
[2025-02-20 03:33] VITALS: BP 185/94; O2SAT 97
[2025-02-20 08:22] LABS: BASO % 0.1 % (0.1-1.2); EOS # 0.00 (0.04-0.54); EOS % 0.0 % (0.7-7.0); LYMPH # 0.65 (1.18-3.74); LYMPH % 6.4 % (19.3-53.1); MEAN PLATELET VOLUME 10.70 fl (9.4-12.4); MONO # 0.87 (0.24-0.82); MONO % 8.5 % (4.7-12.5); NEUT # 8.29 (1.56-6.13); NEUT % 81.5 % (34.0-71.1); RED CELL DISTRIBUTION WIDTH 14.6 % (11.6-14.4)
[2025-02-20 08:54] LABS: BUN CREA RATIO 22.0 (7.0-25.0); CREATININE SERUM 0.88 mg/dL (0.70-1.30); GFR 84.65; GLUCOSE FASTING 114.0 mg/dL (65-100); OSMOLALITY SERUM 284.0 MOSM/KG (275-295)
[2025-02-20 09:58] VITALS: BP 160/88; O2SAT 98
[2025-02-20 16:09] VITALS: BP 146/82; O2SAT 94
[2025-02-21 03:33] VITALS: BP 150/68; O2SAT 97
[2025-02-21 09:24] VITALS: BP 157/67; O2SAT 96
== END 2025-02-21 11:09 | disposition home or self-care (01) | DRG 872 ==
LOC: ER 11:01 → SEC-K 20:42 → MEDJ 02-14 20:16
PROVIDERS: General Practice; Internal Medicine; Student in an Organized Health Care Education/Training Program; ADMIT Internal Medicine; ATTEND Internal Medicine
PROC: BW21ZZZ Computerized Tomography (CT Scan) of Abdomen and Pelvis (ICD-10-PCS; principal; 2025-02-13)
PROC: B246ZZZ Ultrasonography of Right and Left Heart (ICD-10-PCS; 2025-02-16)
DX: A41.9 Sepsis, unspecified organism (principal); N39.0 Urinary tract infection, site not specified; N17.8 Other acute kidney failure; D69.6 Thrombocytopenia, unspecified; I10 Essential (primary) hypertension; E78.49 Other hyperlipidemia; B96.29 Other Escherichia coli [E. coli] as the cause of diseases classified elsewhere

== ENCOUNTER → 2025-04-17 06:20 | Outpatient (CLI) | payer OTHER ==
[~2025-04-17 06:20] MED LIST changes: +CRESTOR40 MG PO; +MEDROL4 MG PO; +MILLIPRED5 MG
[2025-04-17 07:59] LABS: ALT/SGPT 26 U/L (12-78); AST/SGOT 15 U/L (15-37); BILIRUBIN TOTAL 0.96 mg/dL (0.3-1.2); BUN CREA RATIO 21 (7.0-25.0); CREATININE SERUM 1.09 mg/dL (0.70-1.30); GFR 65.95; GLOBULINA 3.5 G/DL (2.4-3.5); GLUCOSE FASTING 100 mg/dL (65-100); OSMOLALITY SERUM 283 MOSM/KG (275-295)
== END | disposition home or self-care (01) ==
LOC: LAB 06:20
DX: M05.70 Rheumatoid arthritis with rheumatoid factor of unspecified site without organ or systems involvement (principal); M06.4 Inflammatory polyarthropathy; M19.90 Unspecified osteoarthritis, unspecified site

== ENCOUNTER 2025-05-07 06:14 | Outpatient (CLI) | payer OTHER ==
[2025-05-07 06:48] LABS: BASO % 0.3 % (0.1-1.2); EOS # 0.23 (0.04-0.54); EOS % 2.5 % (0.7-7.0); LYMPH # 1.41 (1.18-3.74); LYMPH % 15.5 % (19.3-53.1); MEAN PLATELET VOLUME 10.60 fl (9.4-12.4); MONO # 1.12 (0.24-0.82); NEUT # 6.28 (1.56-6.13); NEUT % 68.9 % (34.0-71.1); RED CELL DISTRIBUTION WIDTH 15.1 % (11.6-14.4)
[2025-05-07 06:50] LABS: MONO % 12.3 % (4.7-12.5)
[2025-05-07 07:47] LABS: ALT/SGPT 26.0 U/L (12-78); AST/SGOT 19.0 U/L (15-37); BILIRUBIN TOTAL 1.0 mg/dL (0.3-1.2); BUN CREA RATIO 13.0 (7.0-25.0); CREATININE SERUM 0.98 mg/dL (0.70-1.30); GFR 74.56; GLOBULINA 3.7 G/DL (2.4-3.5); GLUCOSE FASTING 126.0 mg/dL (65-100); OSMOLALITY SERUM 287.0 MOSM/KG (275-295)
[2025-05-07 07:59] LABS: URINE APPEARANCE Clear; URINE BILIRRUBIN Negative (NEGATIVE); URINE BLOOD Negative; URINE COLOR Yellow; URINE GLUCOSE Negative (NEGATIVE); URINE KETONE Negative (NEGATIVE); URINE LEUKOCYTE Negative; URINE NITRATE Negative; URINE PROTEIN 30 (NEGATIVE); URINE UROBILINOGEN 1.0 E.U./dl
[2025-05-07 08:03] LABS: URINE BACTERIA 7.1 uL (0.0-1933); URINE EPITHELIAL CELLS 5.5 uL (0.0-38.8); URINE RBC 2.6 uL (0.0-20.8)
[2025-05-07 08:44] LABS: URINE CAST 0.14 uL (0.0-1.40); URINE WBC 1.5 uL (0.0-23.2)
== END 2025-05-07 06:19 | disposition home or self-care (01) ==
LOC: LAB 06:14
PROVIDERS: ATTEND Internal Medicine
DX: I11.9 Hypertensive heart disease without heart failure (principal); K62.5 Hemorrhage of anus and rectum; M15.9 Polyosteoarthritis, unspecified; I10 Essential (primary) hypertension; E55.9 Vitamin D deficiency, unspecified

== ENCOUNTER 2025-06-10 04:56 | Emergency (ER) | payer OTHER ==
[~2025-06-10] VITALS: Ht 162.6 cm; Wt 81.6 kg
[2025-06-10] MEDS ORDERED: LOSARTAN POTASS50 MG PO (05:15)
[2025-06-10] MEDS ORDERED: TAMS0.4C PO (05:15)
[2025-06-10] MEDS ORDERED: INFANT'S I50 MG/1.21 PO (05:15)
[2025-06-10] MEDS ORDERED: B COMPLEX1 EACH PO (05:16)
[2025-06-10] MEDS ORDERED: ORPHENADRINE CITRATE 30 MG/ML AMPUL IM STA (05:40)
[2025-06-10] MEDS ORDERED: TRIAMCINOLONE ACETONIDE 40 MG/ML VIAL IM STA (05:40)
[2025-06-10] MEDS ORDERED: KETOROLAC TROMETHAMINE 60 MG VIAL IM STA (05:40)
[2025-06-10] MEDS ORDERED: KETOROLAC TROMETHAMINE 60 MG VIAL IM ONE (06:13)
[2025-06-10] MEDS ORDERED: ORPHENADRINE CITRATE 30 MG/ML AMPUL ONE (06:13)
[2025-06-10] MEDS ORDERED: TRIAMCINOLONE ACETONIDE 40 MG/ML VIAL ONE (06:13)
== END 2025-06-10 06:32 | disposition home or self-care (01) ==
LOC: ER 04:57
DX: M06.862 Other specified rheumatoid arthritis, left knee (principal); M06.861 Other specified rheumatoid arthritis, right knee
CPT/HCPCS: 96372; 99282; J1885; J2360; J3301